=== PATIENT | male | born 1960 | race Caucasian/White ===

== ENCOUNTER 2017-03-08 18:40 | Emergency (ER) | payer MEDICAID ==
[2017-03-08 18:56] VITALS: BP 128/73
[2017-03-08] MEDS ORDERED: ACETAMINOPHEN 500 MG TABLET PO ONE (19:08)
--- NOTE | 2017-03-08 19:08 | ERNOTE ---
Medical Problem HPI - Narrative Date of Service: 03/08/17 - General Chief Complaint: General Assessment Time Seen by Provider: 03/08/17 18:42 Source: patient Exam Limitations: no limitations - Immun/Allergies/Home Medications Immunizations: IMMUNIZATION HX Immunizations Up to Date Yes History of Influenza Vaccine Yes Hx Pneumococcal Vaccination No Allergies/Adverse Reactions: Allergies No Known Allergies Allergy (Unverified 03/08/17 18:56) Home Medications: HOME MEDICATIONS FLUoxetine HCL [Prozac] 20 mg PO DAILY 03/08/17 [Last Taken Unknown] Lisinopril/Hydrochlorothiazide [Lisinopril-Hctz 20-25 mg Tab] 1 each PO DAILY [Last Taken Unknown] Melatonin 5 mg PO HS 03/08/17 [Last Taken Unknown] Tamsulosin HCl [Flomax] 0.4 mg PO HS 03/08/17 [Last Taken Unknown] - History of Present History Narrative: Patient presents to the emergency room approximately a week after he had the flu shot he complains of feeling some body aches. Denies any fevers chills nausea vomiting cough congestion or sore throat he just feels achy and he is here for care. Review of Systems - Review of Systems Constitutional: Present: chills, other - patient complains of body aches and overall feeling tired EYE: Present: no symptoms reported ENT: Present: no symptoms reported Respiratory: Present: no symptoms reported Cardiology: Present: no symptoms reported Gastrointestinal/Abdominal: Present: no symptoms reported Genitourinary: Present: no symptoms reported Musculoskeletal: Present: no symptoms reported Skin: Present: no symptoms reported - Patient's Past Medical History Patient History - Medical: Anxiety, Other Patient History - Cardiac/Respiratory: Hypertension Patient History - Cancer: No Hx of Cancer Patient History - Surgical Procedures: Orthopedic Patient History - Other: None - Social History Living Situations: home Abuse History: No History of abuse Psych History: Hx of Anxiety Smoking Status: Current some day smoker Have you smoked in the past 12 months: Yes Do you dip or chew tobacco: Yes Patient requests Smoking Cessation Consult: No Initiate information on Smoking Cessation: No Alcohol Use: occasionally Drug Use: none - Immunizations Immunizations Up to Date: Yes Hx Pneumococcal Vaccination: No History of Influenza Vaccine: Yes Physical Exam - Physical Exam General Appearance: Present: wd/wn, alert, no apparent distress Head Exam: Present: normal inspection Ears, Nose, Throat: Present: normal ENT inspection Neck: Present: normal inspection, nontender Respiratory: Present: no respiratory distress, normal breath sounds, no accessory muscle use, chest nontender, lungs clear Cardiovascular/Chest: Present: regular rate, rhythm, no murmur, normal peripheral pulses Gastrointestinal/Abdominal: Present: normal bowel sounds, nontender, nondistended, soft, no organomegaly Back Exam: Present: normal inspection Extremity Exam: Present: normal inspection Neurological Exam: Present: alert, oriented, normal mood/affect ED Progress - Vital Signs Patient's Vital Signs:: I have reviewed the patient's vital signs. Vital Signs: Vital Signs 03/08/17 18:47 Temperature 36.5 C Pulse Rate 88 Respiratory 16 Rate Blood Pressure 128/73 O2 Sat by Pulse 97 Oximetry - Progress/Reassessment Chief Complaint: General Assessment Plan - Plan Plan: Patient's exam is essentially normal his symptoms are consistent with perhaps a flulike syndrome that he may have gotten as a reaction to the flu shot. He is afebrile and his predominant symptom is body aches. He will be treated appropriately Departure Clinical Impression: Myalgia - Departure Disposition: Home self-care Condition: Good Instructions: Muscle Pain, Adult Referrals: Trini Caldwell ARNP [Primary Care Provider] -
== END 2017-03-08 19:10 | disposition home or self-care (01) ==
LOC: ER 18:40
DX: M79.1 Myalgia (principal); I10 Essential (primary) hypertension; F41.9 Anxiety disorder, unspecified; F17.200 Nicotine dependence, unspecified, uncomplicated